=== PATIENT | male | born 1950 | race Caucasian/White ===

== ENCOUNTER 2019-07-07 10:22 | Emergency (ER) | payer MEDICARE ==
[2019-07-07 11:01] VITALS: BP 163/89
--- NOTE | 2019-07-07 11:30 | XRAY Report ---
Reason: injury Procedure Date: 07/07/2019 Accession Number: [id number] / [id number] Procedure: XR - Knee 4 View RT CPT Code: Final Report FULL RESULT: EXAM: RIGHT KNEE RADIOGRAPHY EXAM DATE: 07/07/2019 11:18 AM. CLINICAL HISTORY: Persistent right knee pain status post trauma one day prior to this examination. Patient reports a prior injury 3 months prior to this examination. COMPARISON: None. TECHNIQUE: 3 views. FINDINGS: Bones: Normal. No fractures or bone lesions. Joints: No subluxation. Mild spurring of the tibial spines. Small suprapatellar right knee joint effusion. Soft Tissues: Normal. No soft tissue swelling. IMPRESSION: 1. No acute fracture or subluxation. 2. Small suprapatellar right knee joint effusion. RADIA
[2019-07-07] MEDS ORDERED: MELOXICAM 7.5 MG TABLET PO STA (12:21)
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
== END 2019-07-07 12:55 | disposition home or self-care (01) ==
LOC: ED 10:22
DX: S83.421A Sprain of lateral collateral ligament of right knee, initial encounter (principal); W19.XXXA Unspecified fall, initial encounter; W50.0XXA Accidental hit or strike by another person, initial encounter; R03.0 Elevated blood-pressure reading, without diagnosis of hypertension
CPT/HCPCS: 73564; 99283; A9270